=== PATIENT | female | born 2000 | race Two or more races ===

== ENCOUNTER 2021-06-02 14:07 | Emergency (ER) | payer OTHER ==
[~2021-06-02] VITALS: Ht 160 cm; Wt 67.6 kg
== END 2021-06-02 16:19 | disposition home or self-care (01) ==
LOC: EMR PED 14:07 → ER 14:07 → EMR PED 15:20
DX: J31.0 Chronic rhinitis (principal)

== ENCOUNTER 2021-10-28 17:46 | Emergency (ER) | payer OTHER ==
[~2021-10-28] VITALS: Ht 160 cm; Wt 65.8 kg
== END 2021-10-28 19:43 | disposition home or self-care (01) ==
LOC: EMR PED
DX: R53.81 Other malaise (principal); R53.83 Other fatigue

== ENCOUNTER 2022-04-21 10:18 | Emergency (ER) | payer OTHER ==
[~2022-04-21] VITALS: Ht 160 cm; Wt 64.9 kg
[2022-04-21] MEDS ORDERED: AMOX1TAB5 PO (10:45)
== END 2022-04-21 13:11 | disposition home or self-care (01) ==
LOC: ER 10:18 → EMR PED 10:40 → ER 10:40 → EMR PED 13:11
DX: J06.9 Acute upper respiratory infection, unspecified (principal); Z20.822 Contact with and (suspected) exposure to COVID-19

== ENCOUNTER 2022-08-02 08:45 | Emergency (ER) | payer OTHER ==
[~2022-08-02] VITALS: Ht 160 cm; Wt 66.2 kg
[~2022-08-02 08:45] MED LIST: AMOX1TAB5 PO; ZITHROMAX500 MG PO
[2022-08-02] MEDS ORDERED: PREDNISOLONE SO30 MG PO (11:21)
== END 2022-08-02 11:55 | disposition home or self-care (01) ==
LOC: EMR PED 08:45
DX: R07.89 Other chest pain (principal)

== ENCOUNTER → 2023-04-30 | Emergency (ER) | payer OTHER ==
[~2023-04-30] VITALS: Ht 160 cm; Wt 64.9 kg
[~2023-04-30] MED LIST changes: +PREDNISOLONE SO30 MG PO
== END | disposition home or self-care (01) ==
LOC: ER 13:56
DX: B34.9 Viral infection, unspecified (principal); A08.8 Other specified intestinal infections; Z20.822 Contact with and (suspected) exposure to COVID-19

== ENCOUNTER 2023-09-05 09:32 | Emergency (ER) | payer OTHER ==
[~2023-09-05] VITALS: Ht 160 cm; Wt 65.8 kg
[2023-09-05] MEDS ORDERED: MUCINEX DM ER1 EACH PO (14:57)
[2023-09-05] MEDS ORDERED: ZYRTEC10 MG PO (14:57)
[2023-09-05] MEDS ORDERED: AYR SALINE50 ML NASAL (14:57)
== END 2023-09-05 15:59 | disposition home or self-care (01) ==
LOC: ER 09:32
DX: J06.9 Acute upper respiratory infection, unspecified (principal); Z20.822 Contact with and (suspected) exposure to COVID-19

== ENCOUNTER 2024-04-10 15:51 | Emergency (ER) | payer OTHER ==
[~2024-04-10] VITALS: Ht 157.5 cm; Wt 64.9 kg
[~2024-04-10 15:51] MED LIST changes: +AYR SALINE50 ML NASAL; +MUCINEX DM ER1 EACH PO; +ZYRTEC10 MG PO
[2024-04-10] MEDS ORDERED: ACETAMINOPHEN 500 MG GEL..CAP PO ONE ×2 (17:00→17:06)
[2024-04-10 17:27] LABS: HEMATOCRIT 38.3 % (36.0-45.00); HEMOGLOBIN 12.7 g/dL (12.0-15.00); MEAN CELL VOLUME 73.4 fL (80.00-100.00); MEAN CORPUSCULAR HEMOGLOBIN 24.3 pg (27.00-32.0); MEAN CORPUSCULAR HGB CONC 33.1 g/dl (32.0-36.0); PLATELET COUNT 221 K/uL (150-450); RED BLOOD COUNT 5.22 M/uL (4.00-6.00); RED CELL DISTRIBUTION WIDTH 14.2 % (11.5-14.5)
[2024-04-10 17:51] LABS: URINE APPEARANCE Cloudy; URINE BILIRRUBIN Negative (NEGATIVE); URINE BLOOD Trace; URINE COLOR Yellow; URINE GLUCOSE Negative (NEGATIVE); URINE LEUKOCYTE Negative; URINE NITRATE Negative; URINE PROTEIN Trace (NEGATIVE)
[2024-04-10 17:55] LABS: URINE BACTERIA 4908.9 uL (0.0-1933); URINE EPITHELIAL CELLS 51.1 uL (0.0-38.8); URINE RBC 22.5 uL (0.0-20.8); URINE WBC 28.1 uL (0.0-23.2)
[2024-04-10 18:20] LABS: URINE CRYSTALS FEW /HPF; URINE MUCUS MODERATE
[2024-04-10] MEDS ORDERED: QC TUSSIN DM L118 ML PO (18:35)
[2024-04-10] MEDS ORDERED: OSEL75CA PO (18:35)
== END 2024-04-10 19:05 | disposition home or self-care (01) ==
LOC: ER 15:52
PROVIDERS: Nurse Practitioner Family
DX: J10.1 Influenza due to other identified influenza virus with other respiratory manifestations (principal); R53.81 Other malaise